=== PATIENT | female | born 1960 | race Caucasian/White ===

== ENCOUNTER 2019-10-12 13:11 | Inpatient (IN) | payer OTHER ==
--- NOTE | 2019-10-12 14:20 | Event Note ---
ED Screening Note ED Screening Note: co cp and rapid hr This initial assessment/diagnostic orders/clinical plan/treatment(s) is/are subject to change based on patients health status, clinical progression and re- assessment by fellow clinical providers in the ED. Further treatment and workup at subsequent clinical providers discretion. Patient/guardian urged not to elope from the ED as their condition may be serious if not clinically assessed and managed. Initial orders include: cards workup
--- NOTE | 2019-10-12 15:51 | XRay Report ---
CHEST 2 VIEWS INDICATION / CLINICAL INFORMATION: Dyspnea. COMPARISON: None available. FINDINGS: SUPPORT DEVICES: None. HEART / MEDIASTINUM: Normal heart size. Atherosclerosis in the thoracic aorta. LUNGS / PLEURA: There are low lung volumes with mild chronic appearing reticular opacities that could represent chronic interstitial lung disease. There is no focal consolidation or significant effusion . No pneumothorax. ADDITIONAL FINDINGS: No significant additional findings. IMPRESSION: 1. Low lung volumes with reticular interstitial opacities that may indicate chronic interstitial lung disease. Signer Name: River Guevara MD Signed: 10/12/2019 3:46 PM Workstation Name: [id number]
[2019-10-12 17:09] LABS: Basophils # (Auto) 0.1 K/mm3 (0.0-0.1); Basophils % (Auto) 0.6 % (0.0-1.8); Eosinophils % (Auto) 0.2 % (0.0-4.3); Hematocrit 25.3 % (30.3-42.9); Hemoglobin 7.7 gm/dl (10.1-14.3); Lymphocytes # (Auto) 1.8 K/mm3 (1.2-5.4); Lymphocytes % (Auto) 13.6 % (13.4-35.0); Mean Corpuscular HGB Conc 30 % (30-34); Mean Corpuscular Volume 72 fl (79-97); Monocytes # (Auto) 1.2 K/mm3 (0.0-0.8); Monocytes % (Auto) 8.7 % (0.0-7.3); Platelet Count 281 K/mm3 (140-440); Red Blood Count 3.53 M/mm3 (3.65-5.03); Red Cell Distribution Width 17.7 % (13.2-15.2)
[2019-10-12 17:34] LABS: Alanine Aminotransferase 23 units/L (7-56); Albumin 3.4 g/dL (3.9-5); BUN/Creatinine Ratio 27; Blood Urea Nitrogen 19 mg/dL (7-17); Calcium 9.2 mg/dL (8.4-10.2); Hemolysis Index 0
--- NOTE | 2019-10-12 20:11 | Emergency Department Report ---
ED Shortness of Breath HPI - General Chief Complaint: Dyspnea/Respdistress Stated Complaint: RAPID HEARTBEAT Time Seen by Provider: 10/12/19 19:55 Source: patient Mode of arrival: Ambulatory Limitations: No Limitations - History of Present Illness Initial Comments: Patient is a 59-year-old female that presents emergency room with complaints of heart palpitations, shortness of breath and fever and cough. Patient states the shortness of breath and heart palpitations and cough started 2 days ago. Patient dates the fever started this morning after leaving her primary care's office. Patient states her primary care sent her here for evaluation. Patient states that her symptoms are better with rest and worse with exertion. Patient has not been tested for COVID. Patient denies recent travel. Patient denies recent international travel. Patient denies exposure to the novel coronavirus. Patient denies sick contacts. Patient denies fever and chills. Patient denies diarrhea. Patient denies coming in contact with anybody with symptoms of the novel coronavirus. MD Complaint: shortness of breath, cough -: Sudden Severity: severe Pain Scale: 0 Consistency: constant Improves With: rest Worsens With: exertion, movement Known History Of: diabetes Associated Symptoms: fever, cough Treatments Prior to Arrival: none - Related Data Home Oxygen Therapy: No Allergies Allergy/AdvReac Type Severity Reaction Status Date / Time No Known Allergies Allergy Unverified 10/12/19 13:21 ED Review of Systems ROS: Stated complaint: RAPID HEARTBEAT Other details as noted in HPI Constitutional: fever Eyes: denies: eye pain, eye discharge, vision change ENT: denies: ear pain, throat pain Respiratory: see HPI, cough, shortness of breath. denies: wheezing Cardiovascular: palpitations, dyspnea on exertion. denies: chest pain Endocrine: no symptoms reported Gastrointestinal: denies: abdominal pain, nausea, diarrhea Genitourinary: denies: urgency, dysuria, discharge Musculoskeletal: denies: back pain, joint swelling, arthralgia Skin: denies: rash, lesions Neurological: denies: headache, weakness, paresthesias Psychiatric: denies: anxiety, depression Hematological/Lymphatic: denies: easy bleeding, easy bruising ED Past Medical Hx - Past Medical History Previous Medical History?: Yes Hx Hypertension: Yes Hx Diabetes: Yes Additional medical history: Hep C - Social History Smoking Status: Never Smoker Substance Use Type: None ED Physical Exam - General Limitations: No Limitations General appearance: alert, in no apparent distress - Head Head exam: Present: atraumatic, normocephalic - Eye Eye exam: Present: normal appearance - ENT ENT exam: Present: mucous membranes moist - Neck Neck exam: Present: normal inspection - Respiratory Respiratory exam: Present: normal lung sounds bilaterally. Absent: respiratory distress - Cardiovascular Cardiovascular Exam: Present: regular rate, normal rhythm. Absent: systolic murmur, diastolic murmur, rubs, gallop - GI/Abdominal GI/Abdominal exam: Present: soft, normal bowel sounds - Extremities Exam Extremities exam: Present: normal inspection - Back Exam Back exam: Present: normal inspection - Neurological Exam Neurological exam: Present: alert, oriented X3 - Psychiatric Psychiatric exam: Present: normal affect, normal mood - Skin Skin exam: Present: warm, dry, intact, normal color. Absent: rash ED Course Vital Signs 10/12/19 10/12/19 10/12/19 14:27 19:46 23:27 Temperature 99.8 F H 100.4 F H 99.2 F Pulse Rate 110 H 109 H 106 H Respiratory 18 16 20 Rate Blood Pressure 172/89 Blood Pressure 160/90 152/74 [Right] O2 Sat by Pulse 97 94 100 Oximetry - Reevaluation(s) Reevaluation #1: Initial evaluation done. Patient found to be hypoxic and placed on oxygen. Patient's O2 sat 93%. Patient on 2 L found to have an O2 sat of 95. Patient will be increased to 4 L. 10/12/19 20:10 Reevaluation #2: I discussed all results with patient. I discussed plan of care with patient. Patient agrees with plan of care and admission. Patient to be admitted to the hospitalist service. 10/12/19 22:02 - Consultations Consultation #1: Hospitalist consulted for admission. Hospitalist to admit patient. 10/12/19 22:02 Consultation #2: Infectious disease consult placed. COVID protocol ordered 10/12/19 22:02 ED Medical Decision Making - Lab Data Result diagrams: 10/12/19 16:15 10/12/19 21:01 - EKG Data -: EKG Interpreted by Mi EKG shows normal: sinus rhythm, axis, intervals, QRS complexes, ST-T waves Rate: tachycardia - Radiology Data Radiology results: report reviewed CHEST 2 VIEWS INDICATION / CLINICAL INFORMATION: Dyspnea. COMPARISON: None available. FINDINGS: SUPPORT DEVICES: None. HEART / MEDIASTINUM: Normal heart size. Atherosclerosis in the thoracic aorta. LUNGS / PLEURA: There are low lung volumes with mild chronic appearing reticular opacities that could represent chronic interstitial lung disease. There is no focal consolidation or significant effusion. No pneumothorax. ADDITIONAL FINDINGS: No significant additional findings. IMPRESSION: 1. Low lung volumes with reticular interstitial opacities that may indicate chronic interstitial lung disease. - Medical Decision Making Patient is a 59-year-old female that presents emergency room with complaints palpitations, shortness of breath and fever. Patient had a cardiac work-up which was negative. Patient had a chest x-ray which shows bilateral pneumonia. Patient's chest x-ray findings are consistent with a viral pneumonia and possible COVID. Patient's labs are unremarkable. Patient admitted to the hospitalist service. Infectious disease consult placed and the COVID protocol ordered for PUI. On initial evaluation, the patient was found to be hypoxic. Patient given broad-spectrum antibiotics of Rocephin and Zithromax. Patient was also given Decadron - Differential Diagnosis COVID, pneumonia, shortness of breath, palpitations, fever Critical Care Time: Yes Critical care time in (mins) excluding proc time.: 35 Critical care attestation.: If time is entered above; I have spent that time in minutes in the direct care of this critically ill patient, excluding procedure time. Critical Care Time: 35 MINUTES ED Disposition Clinical Impression: SOB (shortness of breath), Person under investigation for COVID-19, Suspected COVID-19 virus infection, Hypoxia, Heart palpitations, Hyperkalemia Anemia Qualifiers: Anemia type: unspecified type Qualified Code(s): D64.9 - Anemia, unspecified Fever Qualifiers: Fever type: unspecified Qualified Code(s): R50.9 - Fever, unspecified Pneumonia Qualifiers: Pneumonia type: due to unspecified organism Laterality: bilateral Lung loc ation: unspecified part of lung Qualified Code(s): J18.9 - Pneumonia, unspecified organism Disposition: OP ADMIT IP TO THIS HOSP Is pt being admited?: Yes Does the pt Need Aspirin: No Condition: Critical Time of Disposition: 20:42
[2019-10-12] MEDS ORDERED: dexAMETHasone 4 MG/ML VIAL IV ONE (20:40)
[2019-10-12] MEDS ORDERED: cefTRIAXone/NS 2 GM/100 ML 2 GM/100 ML BAG IV ONE (20:41)
[2019-10-12] MEDS ORDERED: AZITHROMYCIN 500 MG in SODIUM CHLORIDE 0.9% 250ML 250 ML IV ONE (20:41)
[2019-10-12 22:07] LABS: C-Reactive Protein 6.1 mg/dL (0.00-1.30)
[2019-10-12] MEDS ORDERED: HEPARIN 5,000 UNIT/1 ML VIAL SUB-Q SCH (23:45)
[2019-10-13] MEDS ORDERED: DEXTROSE 50% IN WATER (25GM) 50 ML SYRINGE IV PRN (00:01)
[2019-10-13] MEDS: ACETAMINOPHEN 325 MG TAB PO PRN ×2 (02:01→11:56)
[2019-10-13] MEDS: dexAMETHasone 4 MG/ML VIAL IV SCH ×3 (02:39→15:31)
--- NOTE | 2019-10-13 05:14 | History and Physical Report ---
History of Present Illness Date of examination: 10/12/19 Date of admission: 10/12/19 22:03 Chief complaint: Palpitation , cough and shortness of breath History of present illness: 59 year old female presenting with 2 day history of palpitation, cough and shortness . patient went to her primary cares office today and while leaving the office she developed fever and was asked by her primary care to come to the Emergency room for evaluation. No history of chest pain, nausea or vomiting. Past History Past Medical History: diabetes, hypertension, other (HEPATITIS C) Past Surgical History: No surgical history Social history: no significant social history Family history: no significant family history Medications and Allergies Allergies Allergy/AdvReac Type Severity Reaction Status Date / Time No Known Allergies Allergy Unverified 10/12/19 13:21 Active Meds: Active Medications Acetaminophen (Tylenol) 650 mg PO Q4H PRN PRN Reason: Fever >101 Last Admin: 10/13/19 02:01 Dose: 650 mg Documented by: Dexamethasone (Decadron) 8 mg IV Q6HR JULIET Last Admin: 10/13/19 02:39 Dose: 8 mg Documented by: Dextrose (D50w (25gm) Syringe) 0 ml IV Q30MIN PRN; Protocol PRN Reason: Hypoglycemia Heparin Sodium (Porcine) (Heparin) 5,000 unit SUB-Q Q12HR JULIET Azithromycin 500 mg/ Sodium (Chloride) 250 mls @ 250 mls/hr IV Q24HR JULIET; Protocol Ceftriaxone Sodium (Rocephin/Ns 2 Gm/100 Ml) 2 gm in 100 mls @ 200 mls/hr IV Q24HR JULIET; Protocol Insulin Human Regular (Humulin R) 0 units SUB-Q AC JULIET; Protocol Insulin Human Regular (Humulin R) 0 units SUB-Q QHS JULIET; Protocol Review of Systems Constitutional: fever, chills, weakness, malaise, no sweats, no night sweats, no fatigue, no lethargy Eyes: bilateral: other (NO BILATERAL EYE SYMPTOM) Ears, nose, mouth and throat: no ear pain, no ear discharge, no decreased hearing, no nose pain, no nasal congestion, no nasal discharge, no sinus pressure, no sinus pain, no dental pain, no mouth pain, no dysphagia, no hoarseness, no sore throat, no swelling in mouth, no headache, no vertigo Breasts: deferred Cardiovascular: palpitations, rapid/irregular heart beat, shortness of breath, no chest pain, no orthopnea, no edema, no syncope, no lightheadedness, no claudication, no high blood pressure Respiratory: cough, shortness of breath, no cough with sputum, no excessive sputum, no hemoptysis, no dyspnea on exertion, no congestion, no wheezing, no pleurisy, no pain, no home oxygen Gastrointestinal: abdominal pain, no nausea, no vomiting, no diarrhea, no constipation, no change in bowel habits, no hematemesis, no hematochezia, no loss of appetite, no early satiety, no heartburn, no indigestion, no jaundice Genitourinary Female: no Menstruation: postmenopausal Rectal: no pain, no itching, no hemorrhoids Musculoskeletal: no neck stiffness, no neck pain, no shooting arm pain, no arm numbness/tingling, no low back pain, no shooting leg pain, no leg numbness/tingling, no redness of joints, no hot joints, no morning stiffness, no muscle weakness, no muscle cramps, no myalgias, no atrophy, no arthritis Integumentary: no rash, no pruritis, no redness, no sores, no wounds, no jaundice, no darkening of skin, no depigmentation, no acne, no dryness Neurological: no head injury, no transient paralysis, no paralysis, no weakness, no parathesias, no seizures, no syncope, no tremors, no vertigo, no headaches, no migraines, no confusion, no gait dysfunction, no motor disturbance, no loss of vision Psychiatric: no anxiety, no sleep disturbances, no insomnia, no hypersomnia, no change in appetite, no change in libido, no suicidal ideation, no disorientation, no hallucinations, no depression, no confusion Endocrine: high blood sugars, no cold intolerance, no heat intolerance, no polyuria, no nocturia, no low blood sugars Hematologic/Lymphatic: no easy bruising, no easy bleeding, no lymphadenopathy, no lymphedema Allergic/Immunologic: no persistent infections, no anaphylaxis, no angioedema Exam - Constitutional Vitals: Temp Pulse Resp BP Pulse Ox 102.0 F H 111 H 20 164/68 91 10/13/19 01:33 10/13/19 01:33 10/13/19 01:33 10/13/19 01:33 10/13/19 01:33 General appearance: Present: no acute distress, well-nourished. Absent: disheveled - EENT Eyes: Present: PERRL, EOM intact. Absent: irregular pupil, scleral icterus, miosis, mydriasis ENT: hearing intact - Neck Neck: Present: supple, normal ROM - Respiratory Respiratory effort: normal - Cardiovascular Rhythm: regular Heart Sounds: Present: S1 & S2. Absent: gallop, systolic murmur, diastolic murmur, click - Extremities Extremities: no ischemia, No edema Peripheral Pulses: within normal limits - Abdominal General gastrointestinal: Present: soft, non-tender, non-distended. Absent: tender, distended, rigid, hepatomegaly, splenomegaly, mass, hernia Female genitourinary: Present: deferred - Rectal Rectal Exam: deferred - Integumentary Integumentary: Present: clear, warm, dry - Musculoskeletal Musculoskeletal: strength equal bilaterally - Psychiatric Psychiatric: appropriate mood/affect HEART Score - HEART Score Troponin: Troponin T < 0.010 ng/mL (0.00-0.029) 10/12/19 16:15 Results - Labs CBC & Chem 7: 10/12/19 16:15 10/12/19 21:01 Labs: Laboratory Last Values WBC 13.4 K/mm3 (4.5-11.0) H 10/12/19 16:15 RBC 3.53 M/mm3 (3.65-5.03) L 10/12/19 16:15 Hgb 7.7 gm/dl (10.1-14.3) L 10/12/19 16:15 Hct 25.3 % (30.3-42.9) L 10/12/19 16:15 MCV 72 fl (79-97) L 10/12/19 16:15 MCH 22 pg (28-32) L 10/12/19 16:15 MCHC 30 % (30-34) 10/12/19 16:15 RDW 17.7 % (13.2-15.2) H 10/12/19 16:15 Plt Count 281 K/mm3 (140-440) 10/12/19 16:15 Lymph % (Auto) 13.6 % (13.4-35.0) 10/12/19 16:15 [place] % (Auto) 8.7 % (0.0-7.3) H 10/12/19 16:15 Eos % (Auto) 0.2 % (0.0-4.3) 10/12/19 16:15 Baso % (Auto) 0.6 % (0.0-1.8) 10/12/19 16:15 Lymph # 1.8 K/mm3 (1.2-5.4) 10/12/19 16:15 [place] # 1.2 K/mm3 (0.0-0.8) H 10/12/19 16:15 Eos # 0.0 K/mm3 (0.0-0.4) 10/12/19 16:15 Baso # 0.1 K/mm3 (0.0-0.1) 10/12/19 16:15 Seg Neutrophils % 76.9 % (40.0-70.0) H 10/12/19 16:15 Seg Neutrophils # 10.3 K/mm3 (1.8-7.7) H 10/12/19 16:15 D-Dimer > 09748 ng/mlDDU (0-234) H 10/12/19 21:01 Sodium 136 mmol/L (137-145) L 10/12/19 16:15 Potassium 5.1 mmol/L (3.6-5.0) H 10/12/19 16:15 Chloride 102.2 mmol/L (98-107) 10/12/19 16:15 Carbon Dioxide 20 mmol/L (22-30) L 10/12/19 16:15 Anion Gap 19 mmol/L 10/12/19 16:15 BUN 19 mg/dL (7-17) H 10/12/19 16:15 Creatinine 0.7 mg/dL (0.7-1.2) 10/12/19 16:15 Estimated GFR > 60 ml/min 10/12/19 16:15 BUN/Creatinine Ratio 27 % 10/12/19 16:15 Glucose 136 mg/dL (65-100) H 10/12/19 21:01 Lactic Acid 1.70 mmol/L (0.7-2.0) 10/12/19 19:53 Calcium 9.2 mg/dL (8.4-10.2) 10/12/19 16:15 Ferritin 88.9 ng/mL (13.0-400.0) 10/12/19 21:01 Total Bilirubin 0.30 mg/dL (0.1-1.2) 10/12/19 16:15 AST 31 units/L (5-40) 10/12/19 16:15 ALT 23 units/L (7-56) 10/12/19 16:15 Alkaline Phosphatase 81 units/L (35-129) 10/12/19 16:15 Lactate Dehydrogenase 345 units/L (91-180) H 10/12/19 21:01 Troponin T < 0.010 ng/mL (0.00-0.029) 10/12/19 16:15 C-Reactive Protein 6.10 mg/dL (0.00-1.30) H 10/12/19 21:01 Total Protein 8.8 g/dL (6.3-8.2) H 10/12/19 16:15 Albumin 3.4 g/dL (3.9-5) L 10/12/19 16:15 Albumin/Globulin Ratio 0.6 % 10/12/19 16:15 TSH 0.499 mlU/mL (0.270-4.200) 10/12/19 16:15 Blood Type A POSITIVE 10/12/19 20:02 Antibody Screen Negative 10/12/19 20:02 Microbiology: Microbiology 10/12/19 19:53 Peripheral/Venous Blood Culture - Preliminary Culture in Progress 10/12/19 19:53 Peripheral/Venous Blood Culture - Preliminary Culture in Progress Assessment and Plan - Patient Problems (1) Person under investigation for COVID-19 Current Visit: Yes Status: Acute Plan to address problem: 1. Covid Testing 2. Infectious disease consult 3. Contact and droplet Isolation 4. I.V Dexamethasone traetment (2) Pneumonia Current Visit: Yes Status: Acute Qualifiers: Pneumonia type: due to unspecified organism Laterality: bilateral Lung location: unspecified part of lung Qualified Code(s): J18.9 - Pneumonia, unspecified organism Plan to address problem: 1. I.V Zithromax Antibiotic 2. I.V Rocephin Antibiotic 3. Tylenol po 4. Robitussin for cough 5. Oxygen by N/C (3) Elevated d-dimer Current Visit: Yes Status: Acute Plan to address problem: 1. CTA of the chest to R/O Pulmonary Embolism Sub cut heparin until PE ruled out
[2019-10-13] MEDS ORDERED: AZITHROMYCIN 500 MG in SODIUM CHLORIDE 0.9% 250ML 250 ML IV SCH (10:00)
[2019-10-13] MEDS: INSULIN REGULAR, HUMAN 100 UNITS/1 ML SUB-Q SCH ×4 (11:37→22:51)
[2019-10-13] MEDS: cefTRIAXone/NS 2 GM/100 ML 2 GM/100 ML BAG IV SCH (11:41)
[2019-10-13] MEDS ORDERED: hydrALAZINE 20 MG/1 ML INJ IV STA (14:51)
[2019-10-13] MEDS ORDERED: hydrALAZINE 20 MG/1 ML INJ IV PRN (14:52)
[2019-10-13] MEDS: amLODIPine 5 MG TAB PO SCH (15:21)
[2019-10-13] MEDS: ENOXAPARIN 80 MG/0.8 ML INJ SUB-Q SCH ×2 (19:02→22:50)
--- NOTE | 2019-10-13 19:24 | Progress Note ---
Assessment and Plan Assessment and plan: --PUI/suspect COVID; Bruno PCR negative However patient has fever very high inflammatory markers D-dimers more than 10,000, LDH 345, CRP 6.10 Continue droplet and contact isolation --Pneumonia; versus chronic interstitial lung disease Empiric antibiotics, oxygen titrate O2 sats to more than 90% Follow cultures. Supportive care --Elevated D-dimers more than 10,000 empiric anticoagulation with Lovenox 1 mg/kg body weight every 12 check CTA chest to rule out PE --Febrile illness; probably secondary to pneumonia Follow cultures, patient's call with test is negative However has high markers, closely monitor ID consult if needed --Hyperglycemia/type 2 diabetes mellitus Accu-Chek sliding scale coverage ADA diet Hemoglobin A1c, insulin as needed --DVT prophylaxis; Lovenox Monitor closely and adjust management as needed Plan of care reviewed with the patient and her nurse Even though bruno PCR is negative, patient has high fever Pneumonia, elevated markers, elevated D-dimers We will continue isolation, ID consultation if no improvement History Interval history: Patient seen and examined Patient's chart and medications reviewed Admitted with pneumonia, fever,PUI high suspicion for COVID-19 And respiratory and droplet isolation Vital signs reviewed COVID test negative T-max last 24 hours 100.2 F Hospitalist Physical - Constitutional Vitals: Temp Pulse Resp BP Pulse Ox 97.3 F L 72 20 147/73 87 10/13/19 11:41 10/13/19 11:41 10/13/19 11:41 10/13/19 11:41 10/13/19 11:41 General appearance: Present: no acute distress, well-nourished. Absent: disheveled - EENT Eyes: Present: PERRL, EOM intact - Neck Neck: Present: supple, normal ROM - Respiratory Respiratory effort: normal Respiratory: bilateral: diminished, rhonchi, negative: rales, wheezing - Cardiovascular Rhythm: regular Heart Sounds: Present: S1 & S2 - Extremities Extremities: no ischemia, No edema - Abdominal General gastrointestinal: soft, non-tender, non-distended, normal bowel sounds - Integumentary Integumentary: Present: clear, warm - Psychiatric Psychiatric: appropriate mood/affect - Neurologic Neurologic: moves all extremities HEART Score - HEART Score Troponin: Troponin T < 0.010 ng/mL (0.00-0.029) 10/12/19 16:15 Results - Labs CBC & Chem 7: 10/12/19 16:15 10/12/19 21:01 Labs: Laboratory Last Values WBC 13.4 K/mm3 (4.5-11.0) H 10/12/19 16:15 RBC 3.53 M/mm3 (3.65-5.03) L 10/12/19 16:15 Hgb 7.7 gm/dl (10.1-14.3) L 10/12/19 16:15 Hct 25.3 % (30.3-42.9) L 10/12/19 16:15 MCV 72 fl (79-97) L 10/12/19 16:15 MCH 22 pg (28-32) L 10/12/19 16:15 MCHC 30 % (30-34) 10/12/19 16:15 RDW 17.7 % (13.2-15.2) H 10/12/19 16:15 Plt Count 281 K/mm3 (140-440) 10/12/19 16:15 Lymph % (Auto) 13.6 % (13.4-35.0) 10/12/19 16:15 [place] % (Auto) 8.7 % (0.0-7.3) H 10/12/19 16:15 Eos % (Auto) 0.2 % (0.0-4.3) 10/12/19 16:15 Baso % (Auto) 0.6 % (0.0-1.8) 10/12/19 16:15 Lymph # 1.8 K/mm3 (1.2-5.4) 10/12/19 16:15 [place] # 1.2 K/mm3 (0.0-0.8) H 10/12/19 16:15 Eos # 0.0 K/mm3 (0.0-0.4) 10/12/19 16:15 Baso # 0.1 K/mm3 (0.0-0.1) 10/12/19 16:15 Seg Neutrophils % 76.9 % (40.0-70.0) H 10/12/19 16:15 Seg Neutrophils # 10.3 K/mm3 (1.8-7.7) H 10/12/19 16:15 D-Dimer > 30389 ng/mlDDU (0-234) H 10/12/19 21:01 Sodium 136 mmol/L (137-145) L 10/12/19 16:15 Potassium 5.1 mmol/L (3.6-5.0) H 10/12/19 16:15 Chloride 102.2 mmol/L (98-107) 10/12/19 16:15 Carbon Dioxide 20 mmol/L (22-30) L 10/12/19 16:15 Anion Gap 19 mmol/L 10/12/19 16:15 BUN 19 mg/dL (7-17) H 10/12/19 16:15 Creatinine 0.7 mg/dL (0.7-1.2) 10/12/19 16:15 Estimated GFR > 60 ml/min 10/12/19 16:15 BUN/Creatinine Ratio 27 % 10/12/19 16:15 Glucose 136 mg/dL (65-100) H 10/12/19 21:01 POC Glucose 220 (70-105) H 10/13/19 16:39 Lactic Acid 1.70 mmol/L (0.7-2.0) 10/12/19 19:53 Calcium 9.2 mg/dL (8.4-10.2) 10/12/19 16:15 Ferritin 88.9 ng/mL (13.0-400.0) 10/12/19 21:01 Total Bilirubin 0.30 mg/dL (0.1-1.2) 10/12/19 16:15 AST 31 units/L (5-40) 10/12/19 16:15 ALT 23 units/L (7-56) 10/12/19 16:15 Alkaline Phosphatase 81 units/L (35-129) 10/12/19 16:15 Lactate Dehydrogenase 345 units/L (91-180) H 10/12/19 21:01 Troponin T < 0.010 ng/mL (0.00-0.029) 10/12/19 16:15 C-Reactive Protein 6.10 mg/dL (0.00-1.30) H 10/12/19 21:01 Total Protein 8.8 g/dL (6.3-8.2) H 10/12/19 16:15 Albumin 3.4 g/dL (3.9-5) L 10/12/19 16:15 Albumin/Globulin Ratio 0.6 % 10/12/19 16:15 Procalcitonin 0.62 ng/mL (<0.15) 10/12/19 21:01 TSH 0.499 mlU/mL (0.270-4.200) 10/12/19 16:15 Coronavirus (PCR) Negative (Negative) 10/12/19 Unknown Blood Type A POSITIVE 10/12/19 20:02 Antibody Screen Negative 10/12/19 20:02 Microbiology: Microbiology 10/12/19 19:53 Peripheral/Venous Blood Culture - Preliminary Culture in Progress 10/12/19 19:53 Peripheral/Venous Blood Culture - Preliminary Culture in Progress Active Medications - Current Medications Current Medications: Generic Name Dose Route Start Last Admin Trade Name Freq PRN Reason Stop Dose Admin Acetaminophen 650 mg 10/12/19 23:36 10/13/19 11:56 Tylenol PO 650 mg Q4H PRN Administration Fever >101 Amlodipine Besylate 2.5 mg 10/13/19 15:00 10/13/19 15:21 Amlodipine PO 2.5 mg QDAY JULIET Administration Azithromycin 500 mg 10/14/19 10:00 Zithromax PO QDAY JULIET Dexamethasone 6 mg 10/14/19 10:00 Decadron PO Q24HR JULIET Dextrose 0 ml 10/13/19 00:01 D50w (25gm) Syringe IV Q30MIN PRN Hypoglycemia Protocol Enoxaparin Sodium 70 mg 10/13/19 17:00 10/13/19 19:02 Enoxaparin SUB-Q 70 mg Q12HR JULIET Administration Hydralazine HCl 10 mg 10/13/19 14:52 Apresoline IV Q4HR PRN For BP > 150/90 Azithromycin 500 mg/ Sodium 250 mls @ 250 mls/hr 10/13/19 10:00 10/13/19 11:56 Chloride IV 10/13/19 23:59 250 mls/hr Q24HR JULIET Administration Protocol Ceftriaxone Sodium 2 gm in 100 mls @ 200 mls/hr 10/13/19 10:00 10/13/19 11:41 Rocephin/Ns 2 Gm/100 Ml IV 200 mls/hr Q24HR JULIET Administration Protocol Insulin Human Regular 0 units 10/13/19 07:30 10/13/19 17:08 Humulin R SUB-Q 2 units AC JULIET Administration Protocol Insulin Human Regular 0 units 07/02/20 22:00 Humulin R SUB-Q QHS [facility] Protocol Nutrition/Malnutrition Assess - Dietary Evaluation Nutrition/Malnutrition Findings: Nutrition Notes Start: 10/13/19 12:17 Freq: Status: Active Protocol: Document 10/13/19 12:17 LM (Rec: 10/13/19 12:20 LM [id number]) Nutrition Notes 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 No candelaria score in chart. Pt is suspected for COVID-19. Unable to reach by phone. Nutrition Intervention Follow-Up By: 10/14/19 Additional Comments F/U for candelaria score
--- NOTE | 2019-10-13 19:37 | Consultation ---
History of Present Illness - Reason for Consult Consult date: 10/13/19 r/o COVID Requesting physician: SCOTT TARIQ III - History of Present Illness 59 year old female with history of diabetes, hypertension and HCV admitted on 10/12/2019 due to 2-day history of palpitation, cough and shortness. Patient went to her primary cares office before admission and while leaving the office she developed fever and was asked by her primary care to come to the Emergency room for evaluation. No history of chest pain, nausea or vomiting. No contacts with COVID patients. In the ED, temp 100.4, HR 110. WBC 13.4. Ddimer>10,000. CRP 6.1. LDH 345. Ferritin 88 (normal). Procal 0.6. Blood cx pending. CXR with bilateral reticular interstitial infiltrates. Sats dropped to 87% now on 2L NC. Not the best historian. Review of Systems: positive in bold print General: fever, chills, malaise, generalized weakness Cutaneous: rash, pruritus Head: headaches or injury Eyes: changes in vision, eye pain, double vision Ears: ear pain, ear discharge, ringing or hearing loss Nose: nose bleeding, stuffiness Mouth & throat: bleeding gums, horseness, no dental problems, or swollen glands Neck: no pain, node enlargement/lumps, tyroid enlargement or tenderness Respiratory: SOB, cough, SYED, wheezing, sputum, hemoptysis, pleuritic chest pain Cardiovascular: palpitation, chest pain, leg edema, cyanosis, SYED, orthopnea Musculoskeletal: edema, deformities, pain Gastrointestinal: nausea, vomiting, hematemesis, diarrhea, constipation, melena, bright red blood in stools, fecal incontinence, jaundice Genitourinary/Reproductive: frequent urination, dysuria, hematuria, incontinence Neurogical: seizures, headaches, weakness, paresthesias, loss of speech or vision; memory loss, vertigo, tremors, numbness Psychiatric: stable mood; excessive anxiety, sadness or moodiness Past History Past Medical History: diabetes, hypertension, other (HEPATITIS C) Past Surgical History: No surgical history Social history: no significant social history Family history: no significant family history Medications and Allergies Allergies Allergy/AdvReac Type Severity Reaction Status Date / Time No Known Allergies Allergy Unverified 10/12/19 13:21 Home Medications Medication Instructions Recorded Confirmed Last Taken Type amLODIPine [Norvasc] 2.5 mg PO DAILY 10/13/19 10/13/19 10/12/19 History Active Meds: Active Medications Acetaminophen (Tylenol) 650 mg PO Q4H PRN PRN Reason: Fever >101 Last Admin: 10/13/19 11:56 Dose: 650 mg Documented by: Amlodipine Besylate (Amlodipine) 2.5 mg PO QDAY JULIET Last Admin: 10/13/19 15:21 Dose: 2.5 mg Documented by: Azithromycin (Zithromax) 500 mg PO QDAY JULIET Dexamethasone (Decadron) 6 mg PO Q24HR JULIET Dextrose (D50w (25gm) Syringe) 0 ml IV Q30MIN PRN; Protocol PRN Reason: Hypoglycemia Enoxaparin Sodium (Enoxaparin) 70 mg SUB-Q Q12HR JULIET Last Admin: 10/13/19 19:02 Dose: 70 mg Documented by: Hydralazine HCl (Apresoline) 10 mg IV Q4HR PRN PRN Reason: For BP > 150/90 Azithromycin 500 mg/ Sodium (Chloride) 250 mls @ 250 mls/hr IV Q24HR JULIET; Protocol Stop: 10/13/19 23:59 Last Admin: 10/13/19 11:56 Dose: 250 mls/hr Documented by: Ceftriaxone Sodium (Rocephin/Ns 2 Gm/100 Ml) 2 gm in 100 mls @ 200 mls/hr IV Q24HR JULIET; Protocol Last Admin: 10/13/19 11:41 Dose: 200 mls/hr Documented by: Insulin Human Regular (Humulin R) 0 units SUB-Q AC JULIET; Protocol Last Admin: 10/13/19 17:08 Dose: 2 units Documented by: Insulin Human Regular (Humulin R) 0 units SUB-Q QHS [facility]; Protocol Physical Examination - Physical Exam Narrative exam: LImited due to PPE conservation - Constitutional Vitals: Vital Signs Temp Pulse Resp BP Pulse Ox 97.3 F L 72 20 147/73 87 10/13/19 11:41 10/13/19 11:41 10/13/19 11:41 10/13/19 11:41 10/13/19 11:41 Temperature -Last 24 Hours Temperature 97.3 F Temperature 98.7 F Temperature 98.7 F Temperature 102.0 F Temperature 99.2 F Temperature 100.4 F Results - Labs CBC & Chem 7: 10/12/19 16:15 10/12/19 21:01 Labs: Abnormal lab results 10/12/19 10/12/19 10/13/19 Range/Units 21:01 21:01 09:22 D-Dimer > 41176 H (0-234) ng/mlDDU Glucose 136 H (65-100) mg/dL POC Glucose 233 H (70-105) Lactate Dehydrogenase 345 H (91-180) units/L C-Reactive Protein 6.10 H (0.00-1.30) mg/dL 10/13/19 10/13/19 Range/Units 11:46 16:39 D-Dimer (0-234) ng/mlDDU Glucose (65-100) mg/dL POC Glucose 331 H 220 H (70-105) Lactate Dehydrogenase (91-180) units/L C-Reactive Protein (0.00-1.30) mg/dL Assessment and Plan Cultures: Blood culture no growth today Assessment: 59 year old female with history of diabetes, hypertension and HCV admitted on 10/12/2019 due to 2-day history of palpitation, cough and shortness: #Sepsis: present on admission with fever,tachycardia, hypoxia; source unclear ? bilateral pneumonia. COVID test negative. #Bilateral pneumonia vs lung fibrosis vs PE: COVID test negative. Admission sats down to 87%. Now on 2L. Noted elevated biomarkers very high ddimer but normal ferritin. Ddimer>10,000. CRP 6.1. LDH 345. Ferritin 88 (normal). Procal mildly elevated 0.6. Recommendations: agree with chest CT eval for PE repeat COVID test Continue ceftriaxone and azithromycin for now Continue dexamethasone for now F/u blood c check UA and urine cx Dr Be rounding this weekend Will follow. Lashawn Schofield MD [facility] Assistant [facility] M [phone] O [phone]
--- NOTE | 2019-10-13 21:22 | Cat Scan Report ---
CTA CHEST WITH IV CONTRAST INDICATION: Dyspnea. TECHNIQUE: Axial CT images were obtained through the chest after injection of 100 mL Omnipaque 350 IV contrast. 3 plane MIP reconstructions were produced. All CT scans at this location are performed using CT dose reduction for ALARA by means of automated exposure control. COMPARISON: None available. FINDINGS: Pulmonary Arteries: There are segmental pulmonary emboli in both lungs involving the left lower lobe, right lower lobe, right middle lobe as well as the right upper lobe. There is no large saddle embolu s. There is no evidence for right heart strain. Lungs: There is a tiny right pleural effusion. There are a few scattered tiny 3 to 4 mm pulmonary nod ules. Trachea and Bronchi: No significant abnormality. Heart and Pericardium: No significant abnormality. Vasculature: No significant abnormality. Lymphatics: No lymphadenopathy. Additional Findings: None. Upper Abdomen: No acute findings. Skeletal Structures: No significant osseous abnormality. IMPRESSION: 1. Small bilateral segmental pulmonary emboli. No findings to suggest right heart strain. 2. Tiny right pleural effusion. 3. Scattered tiny 3 to 4 mm pulmonary nodules. INCIDENTAL PULMONARY NODULE RECOMMENDATION Recommendation: Solid Nodule size <6 mm -- Single or Multiple - Low Risk Patient: No routine follow-up - High Risk Patient: Optional CT at 12 months Note These recommendations do not apply to lung cancer screening, patients with immunosuppression, o r patients with known primary cancer. Note Newly detected indeterminate nodule in persons 35 years of age or older. Persons under the age of 35 should not receive follow-up unless there is a known primary cancer. Low Risk Patient -- minimal or absent history of smoking and of other known risk factors. High Risk Patient -- history of smoking or of other known risk factors. Nodule dimensions are average of long and short axes, rounded to the nearest millimeter. Based on 2017 Fleischner Society Guidelines found in Radiology 2017 284:228-243. https://doi.[email or web address]/radiol.[email or web address] Findings of bilateral pulmonary emboli were discussed with the patient's nurse by phone at 8:15 PM c entral time on 10/13/19. Signer Name: River Guevara MD Signed: 10/13/2019 9:17 PM Workstation Name: [id number]
[2019-10-14] MEDS: ACETAMINOPHEN 325 MG TAB PO PRN (10:50)
[2019-10-14] MEDS: ENOXAPARIN 80 MG/0.8 ML INJ SUB-Q SCH ×2 (10:51→22:17)
[2019-10-14] MEDS: cefTRIAXone/NS 2 GM/100 ML 2 GM/100 ML BAG IV SCH (10:51)
[2019-10-14] MEDS: AZITHROMYCIN 250 MG TAB PO SCH (10:52)
[2019-10-14] MEDS: INSULIN REGULAR, HUMAN 100 UNITS/1 ML SUB-Q SCH ×4 (10:52→22:16)
[2019-10-14] MEDS: DEXAMETHASONE 2 MG TAB PO SCH (10:53)
[2019-10-14] MEDS: amLODIPine 5 MG TAB PO SCH (10:54)
--- NOTE | 2019-10-14 19:32 | Progress Note ---
Assessment and Plan Assessment and plan: --PUI/suspect COVID; Bruno PCR negative x2 However patient has fever very high inflammatory markers D-dimers more than 10,000, LDH 345, CRP 6.10 Continue droplet and contact isolation --Pneumonia; versus chronic interstitial lung disease Empiric antibiotics, oxygen titrate O2 sats to more than 90% Follow cultures. Supportive care --Elevated D-dimers more than 10,000 empiric anticoagulation with Lovenox 1 mg/kg body weight every 12 check CTA chest to rule out PE --Febrile illness; probably secondary to pneumonia Follow cultures, patient's call with test is negative However has high markers, closely monitor ID consult if needed --Hyperglycemia/type 2 diabetes mellitus Accu-Chek sliding scale coverage ADA diet Hemoglobin A1c, insulin as needed --DVT prophylaxis; Lovenox Monitor closely and adjust management as needed Plan of care reviewed with the patient and her nurse Even though bruno PCR is negative, patient has high fever Pneumonia, elevated markers, elevated D-dimers We will continue isolation, ID consultation if no improvement History Interval history: Patient seen and examined medical records reviewed Patient feels slightly better anxious to go home Receiving IV antibiotics, Lovenox for subsegmental pulmonary emboli Alert awake oriented Vital signs reviewed Hospitalist Physical - Constitutional Vitals: Temp Pulse Resp BP Pulse Ox 98.3 F 97 H 19 150/77 97 10/14/19 11:37 10/14/19 11:37 10/14/19 11:37 10/14/19 11:37 10/14/19 11:37 General appearance: Present: no acute distress, well-nourished - EENT Eyes: Present: PERRL, EOM intact - Neck Neck: Present: supple, normal ROM - Respiratory Respiratory effort: normal Respiratory: bilateral: diminished, rhonchi, negative: rales, wheezing - Cardiovascular Rhythm: regular Heart Sounds: Present: S1 & S2 - Extremities Extremities: no ischemia, No edema - Abdominal General gastrointestinal: soft, non-tender, non-distended, normal bowel sounds - Integumentary Integumentary: Present: clear, warm - Psychiatric Psychiatric: appropriate mood/affect, cooperative - Neurologic Neurologic: moves all extremities HEART Score - HEART Score Troponin: Troponin T < 0.010 ng/mL (0.00-0.029) 10/12/19 16:15 Results - Labs CBC & Chem 7: 10/12/19 16:15 10/12/19 21:01 Labs: Laboratory Last Values WBC 13.4 K/mm3 (4.5-11.0) H 10/12/19 16:15 RBC 3.53 M/mm3 (3.65-5.03) L 10/12/19 16:15 Hgb 7.7 gm/dl (10.1-14.3) L 10/12/19 16:15 Hct 25.3 % (30.3-42.9) L 10/12/19 16:15 MCV 72 fl (79-97) L 10/12/19 16:15 MCH 22 pg (28-32) L 10/12/19 16:15 MCHC 30 % (30-34) 10/12/19 16:15 RDW 17.7 % (13.2-15.2) H 10/12/19 16:15 Plt Count 281 K/mm3 (140-440) 10/12/19 16:15 Lymph % (Auto) 13.6 % (13.4-35.0) 10/12/19 16:15 [place] % (Auto) 8.7 % (0.0-7.3) H 10/12/19 16:15 Eos % (Auto) 0.2 % (0.0-4.3) 10/12/19 16:15 Baso % (Auto) 0.6 % (0.0-1.8) 10/12/19 16:15 Lymph # 1.8 K/mm3 (1.2-5.4) 10/12/19 16:15 [place] # 1.2 K/mm3 (0.0-0.8) H 10/12/19 16:15 Eos # 0.0 K/mm3 (0.0-0.4) 10/12/19 16:15 Baso # 0.1 K/mm3 (0.0-0.1) 10/12/19 16:15 Seg Neutrophils % 76.9 % (40.0-70.0) H 10/12/19 16:15 Seg Neutrophils # 10.3 K/mm3 (1.8-7.7) H 10/12/19 16:15 D-Dimer > 33082 ng/mlDDU (0-234) H 10/12/19 21:01 Sodium 136 mmol/L (137-145) L 10/12/19 16:15 Potassium 5.1 mmol/L (3.6-5.0) H 10/12/19 16:15 Chloride 102.2 mmol/L (98-107) 10/12/19 16:15 Carbon Dioxide 20 mmol/L (22-30) L 10/12/19 16:15 Anion Gap 19 mmol/L 10/12/19 16:15 BUN 19 mg/dL (7-17) H 10/12/19 16:15 Creatinine 0.7 mg/dL (0.7-1.2) 10/12/19 16:15 Estimated GFR > 60 ml/min 10/12/19 16:15 BUN/Creatinine Ratio 27 % 10/12/19 16:15 Glucose 136 mg/dL (65-100) H 10/12/19 21:01 POC Glucose 198 (70-105) H 10/14/19 17:29 Lactic Acid 1.70 mmol/L (0.7-2.0) 10/12/19 19:53 Calcium 9.2 mg/dL (8.4-10.2) 10/12/19 16:15 Ferritin 88.9 ng/mL (13.0-400.0) 10/12/19 21:01 Total Bilirubin 0.30 mg/dL (0.1-1.2) 10/12/19 16:15 AST 31 units/L (5-40) 10/12/19 16:15 ALT 23 units/L (7-56) 10/12/19 16:15 Alkaline Phosphatase 81 units/L (35-129) 10/12/19 16:15 Lactate Dehydrogenase 345 units/L (91-180) H 10/12/19 21:01 Troponin T < 0.010 ng/mL (0.00-0.029) 10/12/19 16:15 C-Reactive Protein 6.10 mg/dL (0.00-1.30) H 10/12/19 21:01 Total Protein 8.8 g/dL (6.3-8.2) H 10/12/19 16:15 Albumin 3.4 g/dL (3.9-5) L 10/12/19 16:15 Albumin/Globulin Ratio 0.6 % 10/12/19 16:15 Procalcitonin 0.62 ng/mL (<0.15) 10/12/19 21:01 TSH 0.499 mlU/mL (0.270-4.200) 10/12/19 16:15 Coronavirus (PCR) Negative (Negative) 10/14/19 Unknown Blood Type A POSITIVE 10/12/19 20:02 Antibody Screen Negative 10/12/19 20:02 Microbiology: Microbiology 10/12/19 19:53 Peripheral/Venous Blood Culture - Preliminary NO GROWTH AFTER 24 HOURS 10/12/19 19:53 Peripheral/Venous Blood Culture - Preliminary NO GROWTH AFTER 24 HOURS Delatorre/IV: Voiding Method Toilet IV Catheter Type [Right INT / Saline Lock Antecubital] Active Medications - Current Medications Current Medications: Generic Name Dose Route Start Last Admin Trade Name Freq PRN Reason Stop Dose Admin Acetaminophen 650 mg 10/12/19 23:36 10/14/19 10:50 Tylenol PO 650 mg Q4H PRN Administration Fever >101 Amlodipine Besylate 2.5 mg 10/13/19 15:00 10/14/19 10:54 Amlodipine PO 2.5 mg QDAY JULIET Administration Azithromycin 500 mg 10/14/19 10:00 10/14/19 10:52 Zithromax PO 500 mg QDAY JULIET Administration Dexamethasone 6 mg 10/14/19 10:00 10/14/19 10:53 Decadron PO 6 mg Q24HR JULIET Administration Dextrose 0 ml 10/13/19 00:01 D50w (25gm) Syringe IV Q30MIN PRN Hypoglycemia Protocol Enoxaparin Sodium 70 mg 10/13/19 17:00 10/14/19 10:51 Enoxaparin SUB-Q 70 mg Q12HR JULIET Administration Hydralazine HCl 10 mg 10/13/19 14:52 Apresoline IV Q4HR PRN For BP > 150/90 Ceftriaxone Sodium 2 gm in 100 mls @ 200 mls/hr 10/13/19 10:00 10/14/19 10:51 Rocephin/Ns 2 Gm/100 Ml IV 200 mls/hr Q24HR JULIET Administration Protocol Insulin Human Regular 0 units 10/13/19 07:30 10/14/19 19:08 Humulin R SUB-Q 1 units AC JULIET Administration Protocol Insulin Human Regular 0 units 10/13/19 22:00 10/13/19 22:51 Humulin R SUB-Q 1 units QHS [facility] Administration Protocol Nutrition/Malnutrition Assess - Dietary Evaluation Nutrition/Malnutrition Findings: Nutrition Notes Start: 10/13/19 12:17 Freq: Status: Active Protocol: Document 10/14/19 09:50 LM (Rec: 10/14/19 09:51 LM [email or web address]) Nutrition Notes Initial or Follow up Brief Note Subjective/Other Information Valdo score is 22 and pt with 100% intakes in chart. Nutrition Intervention Revisit per MD consult or patient Sign Off request:
[2019-10-15] MEDS: INSULIN REGULAR, HUMAN 100 UNITS/1 ML SUB-Q SCH ×4 (08:35→21:43)
[2019-10-15] MEDS: cefTRIAXone/NS 2 GM/100 ML 2 GM/100 ML BAG IV SCH (09:47)
[2019-10-15] MEDS: amLODIPine 5 MG TAB PO SCH (09:48)
[2019-10-15] MEDS: DEXAMETHASONE 2 MG TAB PO SCH (09:48)
[2019-10-15] MEDS: AZITHROMYCIN 250 MG TAB PO SCH (09:48)
[2019-10-15] MEDS: ENOXAPARIN 80 MG/0.8 ML INJ SUB-Q SCH (09:48)
--- NOTE | 2019-10-15 16:15 | Progress Note ---
Assessment and Plan Assessment and plan: --Subsegmental bilateral PE elevated D-dimers more than 10,000 on Lovenox 1 mg/kg body weight every 12 hours Transition to Eliquis today, Ambulate as tolerated Evaluation for home oxygen Resting O2 sats on RA 96%. Ambulatory O2 sats on RA 97% No indication for home oxygen --PUI/; NEGATIVE COVID test x2 However patient has fever very high inflammatory markers D-dimers more than 10,000, LDH 345, CRP 6.10 ID following --Pneumonia; versus chronic interstitial lung disease Empiric antibiotics, oxygen titrate O2 sats to more than 90% Follow cultures. Supportive care --Febrile illness; present on admission Afebrile today --Hyperglycemia/type 2 diabetes mellitus Accu-Chek sliding scale coverage ADA diet Hemoglobin A1c, insulin as needed --DVT prophylaxis; Lovenox Ambulate as tolerated Possible discharge tomorrow if patient tolerates Eliquis Monitor closely and adjust management as needed Plan of care reviewed with the patient and her nurse History Interval history: Patient seen and examined at the bedside Patient's chart and medications reviewed Patient feels slightly better Bilateral subsegmental PE on Lovenox full dose Will transition to Eliquis Patient has mild shortness of breath Evaluate for home oxygen Ambulate as tolerated Vital signs noted Hospitalist Physical - Constitutional Vitals: Temp Pulse Resp BP Pulse Ox 98.3 F 101 H 20 164/84 95 10/15/19 11:56 10/15/19 11:56 10/15/19 11:56 10/15/19 11:56 10/15/19 11:56 General appearance: Present: no acute distress, well-nourished. Absent: disheveled - EENT Eyes: Present: PERRL, EOM intact - Neck Neck: Present: supple, normal ROM - Respiratory Respiratory effort: normal Respiratory: bilateral: diminished, rhonchi, negative: rales, wheezing - Cardiovascular Rhythm: regular Heart Sounds: Present: S1 & S2 - Extremities Extremities: no ischemia, No edema - Abdominal General gastrointestinal: soft, non-tender, non-distended, normal bowel sounds - Integumentary Integumentary: Present: clear, warm - Psychiatric Psychiatric: appropriate mood/affect, cooperative - Neurologic Neurologic: moves all extremities HEART Score - HEART Score Troponin: Troponin T < 0.010 ng/mL (0.00-0.029) 10/12/19 16:15 Results - Labs CBC & Chem 7: 10/12/19 16:15 10/12/19 21:01 Labs: Laboratory Last Values WBC 13.4 K/mm3 (4.5-11.0) H 10/12/19 16:15 RBC 3.53 M/mm3 (3.65-5.03) L 10/12/19 16:15 Hgb 7.7 gm/dl (10.1-14.3) L 10/12/19 16:15 Hct 25.3 % (30.3-42.9) L 10/12/19 16:15 MCV 72 fl (79-97) L 10/12/19 16:15 MCH 22 pg (28-32) L 10/12/19 16:15 MCHC 30 % (30-34) 10/12/19 16:15 RDW 17.7 % (13.2-15.2) H 10/12/19 16:15 Plt Count 281 K/mm3 (140-440) 10/12/19 16:15 Lymph % (Auto) 13.6 % (13.4-35.0) 10/12/19 16:15 [place] % (Auto) 8.7 % (0.0-7.3) H 10/12/19 16:15 Eos % (Auto) 0.2 % (0.0-4.3) 10/12/19 16:15 Baso % (Auto) 0.6 % (0.0-1.8) 10/12/19 16:15 Lymph # 1.8 K/mm3 (1.2-5.4) 10/12/19 16:15 [place] # 1.2 K/mm3 (0.0-0.8) H 10/12/19 16:15 Eos # 0.0 K/mm3 (0.0-0.4) 10/12/19 16:15 Baso # 0.1 K/mm3 (0.0-0.1) 10/12/19 16:15 Seg Neutrophils % 76.9 % (40.0-70.0) H 10/12/19 16:15 Seg Neutrophils # 10.3 K/mm3 (1.8-7.7) H 10/12/19 16:15 D-Dimer > 98269 ng/mlDDU (0-234) H 10/12/19 21:01 Sodium 136 mmol/L (137-145) L 10/12/19 16:15 Potassium 5.1 mmol/L (3.6-5.0) H 10/12/19 16:15 Chloride 102.2 mmol/L (98-107) 10/12/19 16:15 Carbon Dioxide 20 mmol/L (22-30) L 10/12/19 16:15 Anion Gap 19 mmol/L 10/12/19 16:15 BUN 19 mg/dL (7-17) H 10/12/19 16:15 Creatinine 0.7 mg/dL (0.7-1.2) 10/12/19 16:15 Estimated GFR > 60 ml/min 10/12/19 16:15 BUN/Creatinine Ratio 27 % 10/12/19 16:15 Glucose 136 mg/dL (65-100) H 10/12/19 21:01 POC Glucose 139 (70-105) H 10/15/19 12:12 Lactic Acid 1.70 mmol/L (0.7-2.0) 10/12/19 19:53 Calcium 9.2 mg/dL (8.4-10.2) 10/12/19 16:15 Ferritin 88.9 ng/mL (13.0-400.0) 10/12/19 21:01 Total Bilirubin 0.30 mg/dL (0.1-1.2) 10/12/19 16:15 AST 31 units/L (5-40) 10/12/19 16:15 ALT 23 units/L (7-56) 10/12/19 16:15 Alkaline Phosphatase 81 units/L (35-129) 10/12/19 16:15 Lactate Dehydrogenase 345 units/L (91-180) H 10/12/19 21:01 Troponin T < 0.010 ng/mL (0.00-0.029) 10/12/19 16:15 C-Reactive Protein 6.10 mg/dL (0.00-1.30) H 10/12/19 21:01 Total Protein 8.8 g/dL (6.3-8.2) H 10/12/19 16:15 Albumin 3.4 g/dL (3.9-5) L 10/12/19 16:15 Albumin/Globulin Ratio 0.6 % 10/12/19 16:15 Procalcitonin 0.62 ng/mL (<0.15) 10/12/19 21:01 TSH 0.499 mlU/mL (0.270-4.200) 10/12/19 16:15 Coronavirus (PCR) Negative (Negative) 10/14/19 Unknown Blood Type A POSITIVE 10/12/19 20:02 Antibody Screen Negative 10/12/19 20:02 Microbiology: Microbiology 10/12/19 14:45 Urine,Clean Catch Urine Culture - Preliminary NO GROWTH AFTER 24 HOURS 10/12/19 19:53 Peripheral/Venous Blood Culture - Preliminary NO GROWTH AFTER 48 HOURS 10/12/19 19:53 Peripheral/Venous Blood Culture - Preliminary NO GROWTH AFTER 48 HOURS Delatorre/IV: Voiding Method Toilet IV Catheter Type [Right INT / Saline Lock Forearm] IV Catheter Type [Right INT / Saline Lock Antecubital] Active Medications - Current Medications Current Medications: Generic Name Dose Route Start Last Admin Trade Name Freq PRN Reason Stop Dose Admin Acetaminophen 650 mg 10/12/19 23:36 10/14/19 10:50 Tylenol PO 650 mg Q4H PRN Administration Fever >101 Amlodipine Besylate 2.5 mg 10/13/19 15:00 10/15/19 09:48 Amlodipine PO 2.5 mg QDAY JULIET Administration Apixaban 10 mg 10/15/19 22:00 Eliquis PO 10/22/19 10:01 Q12HR JULIET Protocol Apixaban 5 mg 10/22/19 22:00 Eliquis PO Q12HR JULIET Protocol Azithromycin 500 mg 10/14/19 10:00 10/15/19 09:48 Zithromax PO 500 mg QDAY JULIET Administration Dexamethasone 6 mg 10/14/19 10:00 10/15/19 09:48 Decadron PO 6 mg Q24HR JULIET Administration Dextrose 0 ml 10/13/19 00:01 D50w (25gm) Syringe IV Q30MIN PRN Hypoglycemia Protocol Hydralazine HCl 10 mg 10/13/19 14:52 Apresoline IV Q4HR PRN For BP > 150/90 Ceftriaxone Sodium 2 gm in 100 mls @ 200 mls/hr 10/13/19 10:00 10/15/19 09:47 Rocephin/Ns 2 Gm/100 Ml IV 200 mls/hr Q24HR JULIET Administration Protocol Insulin Human Regular 0 units 10/13/19 07:30 10/15/19 14:08 Humulin R SUB-Q Not Given AC JULIET Protocol Insulin Human Regular 0 units 10/13/19 22:00 10/14/19 22:16 Humulin R SUB-Q 3 units QHS JULIET Administration Protocol Nutrition/Malnutrition Assess - Dietary Evaluation Nutrition/Malnutrition Findings: Nutrition Notes Start: 10/13/19 12:17 Freq: Status: Active Protocol: Document 10/14/19 09:50 LM (Rec: 10/14/19 09:51 LM [email or web address]) Nutrition Notes Initial or Follow up Brief Note Subjective/Other Information Valdo score is 22 and pt with 100% intakes in chart. Nutrition Intervention Revisit per MD consult or patient Sign Off request:
--- NOTE | 2019-10-15 18:34 | Progress Note ---
Assessment and Plan Cultures: Blood culture no growth today Assessment: 59 year old female with history of diabetes, hypertension and HCV admitted on 10/12/2019 due to 2-day history of palpitation, cough and shortness: #Sepsis: present on admission with fever,tachycardia, hypoxia; source unclear ? bilateral pneumonia. COVID test negative. #Bilateral pneumonia vs lung fibrosis vs PE: COVID test negative. Admission sats down to 87%. Now on 2L. Noted elevated biomarkers very high ddimer but normal ferritin. Ddimer>10,000. CRP 6.1. LDH 345. Ferritin 88 (normal). Procal mildly elevated 0.6. Recommendations: agree with chest CT eval for PE Continue ceftriaxone and azithromycin for now for 5 days total given elevated procalcitonin Stop dexamethasone with 2X negative COVID-19 tests When ready for discharge, would send with cefdinir 300 mg every 12 hours to complete [address] Landeros taking over Thursday Ricki Be MD [facility] M: [phone] O: [phone] F: [phone] Subjective Date of service: 10/15/19 Interval history: Afebrile, on room air Objective - Exam Narrative Exam: Physical exam deferred due to PPE conservation strategy. Reviewed in chart. - Constitutional Vitals: Vital Signs Temp Pulse Resp BP Pulse Ox 98.3 F 101 H 20 164/84 95 10/15/19 11:56 10/15/19 11:56 10/15/19 11:56 10/15/19 11:56 10/15/19 11:56 Temperature -Last 24 Hours Temperature 98.3 F Temperature 98.8 F Temperature 99.0 F - Labs CBC & Chem 7: 10/12/19 16:15 10/12/19 21:01 Labs: Abnormal lab results 10/14/19 10/15/19 10/15/19 Range/Units 22:13 08:15 12:12 POC Glucose 202 H 117 H 139 H (70-105) 10/15/19 Range/Units 17:54 POC Glucose 335 H (70-105)
[2019-10-15] MEDS: APIXABAN 5 MG TAB PO SCH (21:41)
[2019-10-16 05:55] LABS: BUN/Creatinine Ratio 33; Blood Urea Nitrogen 20 mg/dL (7-17); Calcium 8.6 mg/dL (8.4-10.2); Hemolysis Index 0
[2019-10-16 06:13] LABS: Basophils % (Auto) 0.1 % (0.0-1.8); Hematocrit 23.6 % (30.3-42.9); Hemoglobin 7.2 gm/dl (10.1-14.3); Lymphocytes # (Auto) 1.9 K/mm3 (1.2-5.4); Mean Corpuscular HGB Conc 31 % (30-34); Mean Corpuscular Volume 72 fl (79-97); Monocytes # (Auto) 1.3 K/mm3 (0.0-0.8); Monocytes % (Auto) 10.6 % (0.0-7.3); Platelet Count 355 K/mm3 (140-440); Red Blood Count 3.28 M/mm3 (3.65-5.03); Red Cell Distribution Width 17.7 % (13.2-15.2)
[2019-10-16] MEDS: INSULIN REGULAR, HUMAN 100 UNITS/1 ML SUB-Q SCH ×2 (08:43→12:42)
[2019-10-16] MEDS: AZITHROMYCIN 250 MG TAB PO SCH (09:04)
[2019-10-16] MEDS: APIXABAN 5 MG TAB PO SCH (09:05)
[2019-10-16] MEDS: amLODIPine 5 MG TAB PO SCH (09:05)
[2019-10-16] MEDS: cefTRIAXone/NS 2 GM/100 ML 2 GM/100 ML BAG IV SCH (09:05)
--- NOTE | 2019-10-16 15:24 | Discharge Summary ---
Providers - Providers Date of Admission: 10/12/19 22:03 Date of discharge: 10/16/19 Attending physician: SHANNAN LOPEZ 10/12/19 21:12 Consult to Physician [CONS] Routine Comment: Consulting Provider: JOHNNY NAYLOR Physician Instructions: Reason For Exam: susp lien Primary care physician: EVER MONTGOMERY Hospitalization Condition: Critical Disposition: DC-01 TO HOME OR SELFCARE Time spent for discharge: 32 min Core Measure Documentation - Palliative Care Palliative Care/ Comfort Measures: Not Applicable - Core Measures Any of the following diagnoses?: none Exam - Constitutional Vitals: Temp Pulse Resp BP Pulse Ox 98.7 F 94 H 20 166/83 97 10/16/19 11:05 10/16/19 11:05 10/16/19 11:05 10/16/19 11:05 10/16/19 11:05 General appearance: Present: no acute distress, well-nourished - EENT Eyes: Present: PERRL, EOM intact - Neck Neck: Present: supple, normal ROM - Respiratory Respiratory effort: normal Respiratory: bilateral: diminished, negative: rales, rhonchi, wheezing - Cardiovascular Rhythm: regular Heart Sounds: Present: S1 & S2 - Extremities Extremities: no ischemia, No edema - Abdominal General gastrointestinal: Present: soft, non-tender, non-distended, normal bowel sounds - Integumentary Integumentary: Present: clear, warm - Musculoskeletal Musculoskeletal: strength equal bilaterally - Psychiatric Psychiatric: appropriate mood/affect, cooperative - Neurologic Neurologic: moves all extremities Plan Activity: no restrictions Diet: regular Additional Instructions: If you have worsening symptoms contact MD or go to emergency room. Your COVID test is negative x2. Resting and ambulatory room air oxygen saturations more than 95%, no indication for home oxygen Follow up with: EVER MONTGOMERY JR, MD [Primary Care Provider] - 3-5 Days Prescriptions: amLODIPine 2.5 mg PO QDAY #30 tablet Apixaban [Eliquis] 2 tab PO BID #22 tablet Apixaban [Eliquis] 5 mg PO Q12HR #60 tablet
[2019-10-16 18:15] VITALS: BP 171/87
[2019-10-22] MEDS ORDERED: APIXABAN 5 MG TAB PO SCH (22:00)
== END 2019-10-16 19:16 | disposition home or self-care (01) | DRG 871 ==
LOC: ED 13:11 → 3A 22:03
PROVIDERS: ADMIT Internal Medicine; ATTEND Internal Medicine
DX: A41.9 Sepsis, unspecified organism (principal); J18.9 Pneumonia, unspecified organism; I26.94 Multiple subsegmental thrombotic pulmonary emboli without acute cor pulmonale; J90 Pleural effusion, not elsewhere classified; R09.02 Hypoxemia; E11.65 Type 2 diabetes mellitus with hyperglycemia; I10 Essential (primary) hypertension; R79.1 Abnormal coagulation profile; Z20.828 Contact with and (suspected) exposure to other viral communicable diseases; Z79.4 Long term (current) use of insulin
CPT/HCPCS: 36415; 71046; 71275; 80048; 80053; 82140; 82728; 82947; 82962; 83036; 83615; 84145; 84443; 84484; 85025; 85379; 86140; 86850; 86900; 86901; 87040; 87086; 93005; 94760; G0378; J0456; J0696; J1100; J1644; J1650; J1815; J7050; J8540; Q9967; U0003-CS